=== PATIENT | male | born 1980 | race African-American/Black ===

== ENCOUNTER 2016-09-12 17:10 | Emergency (ER) | payer OTHER ==
[2016-09-12 17:16] VITALS: BP 137/90; PULSE 85; TEMP 99; BMI 35.9
--- NOTE | 2016-09-12 17:57 | PDOC ---
History of Present Illness - General Chief Complaint: Oral Ulcers Stated Complaint: MOUTH SORES Time Seen by Provider: 09/12/16 17:22 History Source: Patient Exam Limitations: No Limitations - History of Present Illness Initial Comments: 09/12/16 17:57 36-year-old male with no medical history except for prediabetes presents with whitish film to the upper and lower lip for the past month worsened in the morning upon awakening. Patient denies any mouth involvement, dental pain, fever , throat pain, or recent antibiotics. Patient denies lip biting or teeth grinding at night. Timing/Duration: other Severity: mild Associated Symptoms: reports: denies symptoms Past History - Past Medical History Allergies/Adverse Reactions: Allergies Allergy/AdvReac Type Severity Reaction Status Date / Time No Known Allergies Allergy Verified 09/12/16 17:16 Home Medications: Ambulatory Orders NK [No Known Home Medication] 09/12/16 HTN: (BORDERLINE.) - Surgical History Abdominal Surgery: No Appendectomy: No Cardiac Surgery: No Cholecystectomy: No Gastric Stapling: No GI Surgery: No Lung Surgery: No Neurologic Surgery: No Orthopedic Surgery: No - Psycho/Social/Smoking Cessation Hx Anxiety: No Suicidal Ideation: No Smoking Status: No Smoking History: Never smoked Number of Cigarettes Smoked Daily: 0 Information on smoking cessation initiated: No Hx Alcohol Use: No Drug/Substance Use Hx: No Substance Use Type: None Patient Lives Alone: Yes Lives with/in: lives alone Review of Systems - Review of Systems Able to Perform ROS?: Yes Constitutional: No: Symptoms Reported Integumentary: Yes: See HPI *Physical Exam - Vital Signs Last Vital Signs Temp Pulse Resp BP Pulse Ox 99 F 85 18 137/90 99 09/12/16 17:12 09/12/16 17:12 09/12/16 17:12 09/12/16 17:12 09/12/16 17:12 - Physical Exam General Appearance: Yes: Nourished, Appropriately Dressed. No: Apparent Distress HEENT: positive: Other (whitish slouging skin to upper and upper and lower lip following a linear pattern along the rah border) Medical Decision Making - Medical Decision Making 09/12/16 18:00 Patient with complaints of whitish skin to the upper and lower lip for the past month worsened in the morning. Patient with possible early fungal infection. Patient will be given a prescription for nystatin swish and spit. *DC/Admit/Observation/Transfer Diagnosis at time of Disposition: Candidiasis of mouth - Discharge Dispostion Disposition: HOME Condition at time of disposition: Good - Referrals Referrals: Sean Lloyd [Primary Care Provider] - - Patient Instructions Printed Discharge Instructions: DI for Thrush, Nystatin Additional Instructions: Please use nystatin as prescribed. Please do not eat or drink anything and half hour after using and check your glucose as discussed.
== END 2016-09-12 18:03 | disposition home or self-care (01) ==
LOC: JERFT 17:10
DX: B37.0 Candidal stomatitis (principal)
CPT/HCPCS: 99281-25

== ENCOUNTER 2016-11-12 10:38 | Emergency (ER) | payer OTHER ==
[2016-11-12 11:04] VITALS: BP 132/99; PULSE 75; TEMP 98.6; BMI 35.9
--- NOTE | 2016-11-12 11:39 | PDOC ---
History of Present Illness - General Chief Complaint: Cold Symptoms Stated Complaint: COUGH, FEVER, CHILLS Time Seen by Provider: 11/12/16 11:21 History Source: Patient Exam Limitations: No Limitations - History of Present Illness Initial Comments: 11/12/16 11:35 Patient came to emergency department for refill of nystatin oral solution. Has used a bottle with 60 mL for persistent oral thrush without resolve. Cough and a cold for the past few weeks, has been using [id number] medications including TheraFlu, Aleve with minimal resolved. States had a fever last week but that resolved also. Ear or throat pain. Denies other people at home sick however patient is a nurse in the pediatric ICU, and is a nurse practitioner student. Is unable to obtain an appointment with his private physician, HIV negative with his last exam. 11/12/16 12:57 Timing/Duration: reports: changing over time, getting worse Severity: reports: moderate Associated Symptoms: reports: cough, fever/chills, nasal congestion, nasal drainage Past History - Travel Traveled outside of the country in the last 30 days: No Close contact w/someone who was outside of country & ill: No - Past Medical History Allergies/Adverse Reactions: Allergies Allergy/AdvReac Type Severity Reaction Status Date / Time No Known Allergies Allergy Verified 11/12/16 10:58 Home Medications: Ambulatory Orders NK [No Known Home Medication] 11/12/16 HTN: (BORDERLINE.) Other medical history: DENIES. - Surgical History Abdominal Surgery: No Appendectomy: No Cardiac Surgery: No Cholecystectomy: No Gastric Stapling: No GI Surgery: No Lung Surgery: No Neurologic Surgery: No Orthopedic Surgery: No - Psycho/Social/Smoking Cessation Hx Anxiety: No Suicidal Ideation: No Smoking Status: No Smoking History: Never smoked Number of Cigarettes Smoked Daily: 0 Hx Alcohol Use: No Drug/Substance Use Hx: No Substance Use Type: None Review of Systems - Review of Systems Able to Perform ROS?: Yes Is the patient limited Bulgarian proficient: Yes Constitutional: Yes: Symptoms Reported, Malaise HEENTM: Yes: Symptoms Reported, See HPI, Mouth Pain Respiratory: Yes: Symptoms reported, See HPI, Cough (non productive ). No: Productive cough Cardiac (ROS): No: Symptoms Reported ABD/GI: Yes: See HPI. No: Symptoms Reported Integumentary: Yes: See HPI. No: Symptoms Reported Neurological: Yes: See HPI. No: Symptoms reported, Headache Endocrine: Yes: See HPI. No: Symptoms Reported, Excessive Sweating, Unexplained Weight Loss All Other Systems: Reviewed and Negative *Physical Exam - Vital Signs Last Vital Signs Temp Pulse Resp BP Pulse Ox 98.6 F 75 19 132/99 98 11/12/16 10:59 11/12/16 10:59 11/12/16 10:59 11/12/16 10:59 11/12/16 10:59 - Physical Exam General Appearance: Yes: Nourished, Appropriately Dressed, Apparent Distress HEENT: positive: EOMI, MANUEL, Normal ENT Inspection, TMs Normal, Pharynx Normal Neck: positive: Tender, Supple. negative: Lymphadenopathy (R), Lymphadenopathy (L) Respiratory/Chest: positive: Lungs Clear, Normal Breath Sounds, Decreased Breath Sounds. negative: Chest Tender, Wheezing Gastrointestinal/Abdominal: positive: Soft. negative: Tender Musculoskeletal: positive: Normal Inspection Extremity: positive: Normal Capillary Refill, Normal Inspection, Normal Range of Motion Integumentary: positive: Dry, Warm, Pale Neurologic: positive: manager payer II-XII NML intact, Fully Oriented, Alert, Normal Mood/ Affect, Normal Response, Motor Strength 5/5 ED Treatment Course - LABORATORY CBC & Chemistry Diagram: 11/12/16 12:14 11/12/16 12:14 - RADIOLOGY Radiology Studies Ordered: Category Date Time Status CHEST PA & LAT [RAD] Stat Radiology 11/12/16 11:33 Ordered Progress Note - Progress Note Progress Note: Persistent oral thrush, will obtain basic labs including an HIV test and chest x -ray Medical Decision Making - Medical Decision Making 11/12/16 14:24 Gingival leukoplakia, no evidence of bacterial infection, CBC and electrolytes within normal limits, HIV testing negative. Chest x-ray was negative for infiltrate. All these laboratories and results reviewed with patient, encouraged to follow-up with his PMD and to have a thorough oral surgery evaluation of his mouth to rule out any further pathology with a skin changes. *DC/Admit/Observation/Transfer Diagnosis at time of Disposition: Leukoplakia of gingiva - Discharge Dispostion Disposition: HOME Condition at time of disposition: Stable Admit: No - Referrals Referrals: Sean Lloyd [Primary Care Provider] - - Patient Instructions Printed Discharge Instructions: Gingivitis Additional Instructions: Rest, keep mouth clean, rinse well with warm water/saline/Listerine after each meal See oral surgeon as soon as possible for thorough evaluation of gum lesions Follow-up with private physician for thorough physical exam - Post Discharge Activity Work/School Note: Back to Work
[2016-11-12 12:19] LABS: BASOPHIL 0.7 % (0-2.0); EOSINOPHIL 2.9 % (0-4.5); MCH 25.6 pg (25.7-33.7); MCHC 31.7 g/dl (32.0-35.9); MEAN CELL VOLUME 80.6 fl (80-96); MEAN PLT VOLUME 6.9 fl (7.5-11.1); NEUTROPHILS 49.5 % (42.8-82.8); PLATELET COUNT 307 K/MM3 (134-434); RDW 14.1 % (11.9-15.9); WHITE BLOOD COUNT 8.2 K/mm3 (4.0-10.0)
[2016-11-12 13:11] LABS: ALBUMIN 3.7 g/dl (3.4-5.0); ANION GAP 9 (8-16); CO2 29 mmol/L (21-32); COCKROFT - GAULT 162.22; GLUCOSE,RANDOM 93 mg/dL (74-106); TOT PROT 7.5 g/dl (6.4-8.2)
[2016-11-12 13:12] LABS: ALK PHOS 66 U/L (45-117); BILIRUBIN,TOTAL 0.3 mg/dL (0.2-1.0); SGOT/AST 28 U/L (15-37); SGPT/ALT 59 U/L (12-78)
[2016-11-12 13:21] LABS: HIV 1 & 2 AB NEGATIVE; HIV 1 AGp24 NEGATIVE
== END 2016-11-12 13:57 | disposition home or self-care (01) ==
LOC: JERFT 10:38 → JER 10:38 → JERFT 13:57
DX: K13.21 Leukoplakia of oral mucosa, including tongue (principal); I10 Essential (primary) hypertension
CPT/HCPCS: 36415; 71020-TC; 80053; 85025; 87389; 99282-25